=== PATIENT | female | born 1935 | race Caucasian/White ===

== ENCOUNTER 2020-01-31 07:29 | Outpatient (CLI) | payer MEDICARE | END 2020-01-31 23:59 | disposition home or self-care (01) | LOC: CFH 07:29 | PROVIDERS: ATTEND Internal Medicine Cardiovascular Disease | DX: I08.3 Combined rheumatic disorders of mitral, aortic and tricuspid valves (principal); I10 Essential (primary) hypertension; I49.9 Cardiac arrhythmia, unspecified | CPT/HCPCS: 93306 ==